=== PATIENT | female | born 1955 | race Hispanic/Latino ===

== ENCOUNTER 2023-09-20 01:21 | Emergency (ER) | payer MEDICARE ==
[~2023-09-20] VITALS: Ht 129.5 cm; Wt 69.9 kg
[~2023-09-20 01:21] MED LIST: DICYCLOMINE HCL10 MG PO; LIPITOR10 MG PO
[2023-09-20] MEDS ORDERED: ONDANSETRON HCL INJ 2MG/ML 2ML 2 MG/ML VIAL IV STA (01:41)
[2023-09-20] MEDS ORDERED: DICYCLOMINE HCL 20 MG/2 ML VIAL IM ONE (01:45)
[2023-09-20 01:52] LABS: BASOPHILS # (AUTO) 0.1 (0.0-0.1); BASOPHILS % 0.7 % (0.0-1.0); EOSINOPHILS # (AUTO) 0.2 (0.0-0.4); EOSINOPHILS % 2.7 % (0.0-6.0); HEMATOCRIT 44.4 % (34.2-44.1); HEMOGLOBIN 14.8 g/dL (12.0-16.0); LYMPHOCYTES # (AUTO) 3.4 (1.0-3.2); LYMPHOCYTES % 41.6 % (18.0-39.1); MEAN CORPUSCULAR HEMOGLOBIN 30.1 pg (28-32); MEAN CORPUSCULAR HGB CONC 33.3 g/dL (31-35); MEAN CORPUSCULAR VOLUME 90.2 fL (81-99); MONOCYTES # (AUTO) 0.6 (0.2-0.8); MONOCYTES % 6.8 % (4.4-11.3); NEUTROPHILS # (AUTO) 3.9 (2.1-6.9); NEUTROPHILS % 48.1 % (38.7-80.0); PLATELET COUNT 321 x10e3/uL (140-360); RED BLOOD COUNT 4.92 x10e6/uL (3.6-5.1); RED CELL DISTRIBUTION WIDTH 13.6 % (11.7-14.4); WHITE BLOOD COUNT 8.11 x10e3/uL (4.8-10.8)
[2023-09-20 02:08] LABS: ALBUMIN 3.8 g/dL (3.5-5.0); ALBUMIN/GLOBULIN RATIO 0.9 (0.8-2.0); ANION GAP 12.4 mmol/L (8-16); CALCIUM 9.3 mg/dL (8.4-10.2); CREATININE, SERUM 0.79 mg/dL (0.57-1.11); POTASSIUM 3.4 mmol/L (3.5-5.1)
[2023-09-20 04:16] LABS: CLARITY,URINE SL CLOUDY (CLEAR); COLOR,URINE YELLOW (YELLOW); LEUKOCYTE ESTERASE ,URINE NEGATIVE (NEGATIVE)
[2023-09-20 04:17] LABS: KETONES,URINE NEGATIVE (NEGATIVE); NITRITE,URINE NEGATIVE (NEGATIVE); PROTEIN,URINE DIPSTICK NEGATIVE (NEGATIVE); URINE UROBILINOGEN 0.2 mg/dL (0.2 - 1)
[2023-09-20 04:20] LABS: BACTERIA,URINE FEW /HPF; EPITHELIAL CELLS,URINE FEW /LPF; RBC,URINE 0-5 /HPF (0-5); WBC,URINE (MAN) 0-5 /HPF (0-5)
[2023-09-20] MEDS ORDERED: ONDANSETRON ODT4 MG SL (04:23)
[2023-09-20] MEDS ORDERED: PANTOPRAZOLE SO40 MG PO (04:23)
[2023-09-20] MEDS ORDERED: DICYCLOMINE HCL20 MG PO (04:23)
[2023-09-20 04:42] VITALS: BP 140/79; O2SAT 99
== END 2023-09-20 04:44 | disposition home or self-care (01) ==
LOC: ER 01:25
DX: R10.11 Right upper quadrant pain (principal); R11.2 Nausea with vomiting, unspecified; R94.31 Abnormal electrocardiogram [ECG] [EKG]
CPT/HCPCS: 36415; 76705; 80053; 81001; 83690; 84484; 85025; 93005; 99284; C9113; J0500; J2405

== ENCOUNTER → 2023-10-04 | Outpatient (REF) | payer MEDICARE ==
[~2023-10-04] MED LIST changes: +DICYCLOMINE HCL20 MG PO; +ONDANSETRON ODT4 MG SL; +PANTOPRAZOLE SO40 MG PO
== END ==
LOC: NM 08:20
PROVIDERS: ATTEND Nurse Practitioner
DX: R10.11 Right upper quadrant pain (principal); K21.9 Gastro-esophageal reflux disease without esophagitis; R11.0 Nausea
CPT/HCPCS: 78227; A9537

== ENCOUNTER 2025-01-28 22:40 | Emergency (ER) | payer MEDICARE ==
[~2025-01-28] VITALS: Ht 129.5 cm; Wt 68.0 kg
[~2025-01-28 22:40] MED LIST changes: +CEFDINIR300 MG PO; +VIT A PO; +VIT B PO; +VIT C PO; +VIT E PO; +[UNRECOGNIZED DRUG - MIXTURE] PO
[2025-01-28 23:11] LABS: BASOPHILS % 0.1 % (0.0-1.0); EOSINOPHILS # (AUTO) 0.1 (0.0-0.4); EOSINOPHILS % 0.8 % (0.0-6.0); HEMOGLOBIN 15.7 g/dL (12.0-16.0); LYMPHOCYTES # (AUTO) 1.2 (1.0-3.2); LYMPHOCYTES % 8.8 % (18.0-39.1); MEAN CORPUSCULAR HEMOGLOBIN 30.7 pg (28-32); MEAN CORPUSCULAR HGB CONC 34.9 g/dL (31-35); MEAN CORPUSCULAR VOLUME 88.1 fL (81-99); MONOCYTES # (AUTO) 0.2 (0.2-0.8); MONOCYTES % 1.6 % (4.4-11.3); NEUTROPHILS # (AUTO) 11.8 (2.1-6.9); NEUTROPHILS % 88.5 % (38.7-80.0); PLATELET COUNT 265 x10e3/uL (140-360); RED BLOOD COUNT 5.11 x10e6/uL (3.6-5.1); RED CELL DISTRIBUTION WIDTH 13.9 % (11.7-14.4); WHITE BLOOD COUNT 13.34 x10e3/uL (4.8-10.8)
[2025-01-28] MEDS: METHYLPREDNISOLONE SOD SUCC 125 MG/2ML VIAL IV ONE (23:11)
[2025-01-28] MEDS: DIPHENHYDRAMINE HCL INJ 50 MG/ML VIAL IV ONE (23:12)
[2025-01-28] MEDS: ACETAMINOPHEN 325 MG TAB PO ONE (23:12)
[2025-01-28] MEDS: SODIUM CHLORIDE 0.9% 1000ML 1,000 ML IV ONE (23:25)
[2025-01-28] MEDS: FAMOTIDINE 20 MG/2 ML VIAL IV STA (23:25)
[2025-01-28 23:29] LABS: ALBUMIN 3.8 g/dL (3.5-5.0); ANION GAP 15.1 mmol/L (8-16); BILIRUBIN,TOTAL 1.3 mg/dL (0.2-1.2); CALCIUM 9.2 mg/dL (8.4-10.2); CREATININE, SERUM 0.84 mg/dL (0.57-1.11); POTASSIUM 4.1 mmol/L (3.5-5.1); TOTAL PROTEIN 7.6 g/dL (6.5-8.1)
[2025-01-29 00:01] LABS: CLARITY,URINE SL CLOUDY (CLEAR); COLOR,URINE YELLOW (YELLOW); LEUKOCYTE ESTERASE ,URINE SMALL (NEGATIVE); PH,URINE 7 (5 - 7)
[2025-01-29 00:02] LABS: BILIRUBIN,URINE NEGATIVE (NEGATIVE); GLUCOSE, URINE NEGATIVE (NEGATIVE); KETONES,URINE TRACE (NEGATIVE); NITRITE,URINE NEGATIVE (NEGATIVE); PROTEIN,URINE DIPSTICK 2+ (NEGATIVE); URINE UROBILINOGEN 0.2 mg/dL (0.2 - 1)
[2025-01-29 00:25] LABS: WBC,URINE (MAN) 21-50 /HPF (0-5)
[2025-01-29 00:26] LABS: BACTERIA,URINE MANY /HPF; EPITHELIAL CELLS,URINE MODERATE /LPF; RBC,URINE 0-5 /HPF (0-5)
[2025-01-29 00:39] VITALS: PULSE 95; RESP 19; TEMP 99.1
[2025-01-29] MEDS ORDERED: MEDROL4 M2 PO (01:59)
[2025-01-29 02:03] VITALS: BP 129/64; PULSE 94; RESP 17; TEMP 98.2; O2SAT 95
[2025-01-29] MEDS ORDERED: FAMOTIDINE 20 MG/2 ML VIAL IV SCH (09:00)
== END 2025-01-29 02:15 | disposition home or self-care (01) ==
LOC: ER 22:49
DX: R50.9 Fever, unspecified (principal); N39.0 Urinary tract infection, site not specified; L27.0 Generalized skin eruption due to drugs and medicaments taken internally; T36.8X5A Adverse effect of other systemic antibiotics, initial encounter; R94.31 Abnormal electrocardiogram [ECG] [EKG]
CPT/HCPCS: 36415; 71045; 80053; 81001; 83605; 85025; 87040; 87086; 93005; 99284; J0696; J1200; J2919; J7030; 85610; 85730